=== PATIENT | female | born 1960 | race Caucasian/White ===

== ENCOUNTER 2020-09-24 08:01 | Outpatient (RCR) | payer OTHER, SELFPAY ==
[2020-09-24] MEDS: COVID-19 VACC, MRNA(PFIZER)/PF 30 MCG/0.3 ML SYRINGE IM (16:15)
[2020-10-15] MEDS: COVID-19 VACC, MRNA(PFIZER)/PF 30 MCG/0.3 ML SYRINGE IM (16:13)
== END 2020-09-24 23:59 ==
LOC: IMMUN 08:01
PROVIDERS: PCP Family Medicine; Visit Provider Family Medicine
DX: Z23 Encounter for immunization (principal)
CPT/HCPCS: 0001A; 0002A; 91300